=== PATIENT | male | born 1935 | race Caucasian/White ===

== ENCOUNTER 2016-10-10 10:43 | Day surgery (SDC) | payer MEDICARE ==
[~2016-10-10] VITALS: Ht 188 cm; Wt 84.4 kg
[~2016-10-10 10:43] MED LIST: ACET325T51 PO; ATRV10T PO; DILT120T3 PO; FERR-83 PO; FLAX100038 PO; FLEC100T2 PO; GLUC1TAB20 PO; Lactated Ringer's 1,000 ML IV ONE; MULT-1018 PO; RIVA20TA PO
[2016-10-10] MEDS ORDERED: Propofol 10,000 mCg/mL 20 mL Inj ONE (10:44)
[2016-10-10 11:17] VITALS: BP 147/84; PULSE 67; RESP 12; O2SAT 97
--- NOTE | 2016-10-10 12:00 | PCM.HPANE ---
Patient Data Date of Service: Oct 10, 2016 Surgeon Admitting Provider: Attending Provider:Sae Granado MD Primary Care Physician:Edvin Mc MD Other Provider:Nemo Grier Anesthesia Reason for Visit Iron Deficiency Anemia Ht/WT & BMI Height (Feet): 6 Height (Inches): 2 Weight (Kilograms): 84.37 Body Mass Index 23.00 Allergies Coded Allergies: No Known Drug Allergies (Verified Allergy, Unknown, 10/09/16) Past Anesthesia History Anesthesia History: Denies:: Abnormal Airway, Anesthesia Reactions, Difficult Intubation, Fam Anesthesia Reaction, Fam Malignant Hypertherm, Malignant Hyperthermia Diabetes History Hx Diabetes?: No MRSA MRSA: No Medications Blood Thinner: Xarelto (last dose sunday) Last Dose Blood Thinner: Oct 07, 2016 Hypertension Medication: Yes Home Meds Incl Beta Vinay: No Reported Medications Rivaroxaban (Xarelto)20 Mg [id number] Mg PO DAILY 10/09/16 Acetaminophen 325 Mg [id number] Mg PO Q4H PRN For Fever Ref 0 10/09/16 Multivitamin (Multi Vitamin Daily)1 Each Tablet1 Each PO DAILY 30 Days Ref 0 10/09/16 Gluc Lord/Chondro Lord A/Vit C/Mn (Glucosamine Chondroitin Tab)1 Each Tablet1 Each PO BID 10/09/16 Flecainide Acetate 100 Mg [id number] Mg PO BID 10/09/16 Flaxseed Oil ([place]-3 Flaxseed Oil)1,000 Mg Capsule1,000 Mg PO DAILY 10/09/16 Ferrous Sulfate 325 Mg [id number] Mg PO DAILY 30 Days Ref 0 10/09/16 Diltiazem 120 Mg [id number] Mg PO BID 10/09/16 Atorvastatin (Lipitor)10 Mg Tab10 Mg PO DAILY Ref 0 10/09/16 History HEENT History: Denies:: Abnormal Airway Difficult Intubation Dysphagia Hearing Problem Denture Type: Partial- Lower Other HEENT Pertinent History: PARTIAL LEFT AT HOME Hx of Heart Problems?: Yes Cardiovascular History: Positive for:: Atrial Fibrillation (INTERMITTENT) Denies:: AICD Chest Pain Hypertension Pacemaker Valvular Heart Disease Hx of Respiratory Problem?: No Hx Neurologic Problems?: No Neurological History: Denies:: CVA Hx of GI Problems?: Yes Gastrointestinal History: Positive for:: Rectal Bleeding ('DARK') Denies:: Cirrhosis Diverticulitis Gall Bladder Disease Gastroesphageal Reflux Hiatal Hernia Liver Disease Other GI Pertinent History: HX OF H PYLORI W/ ANTIBIOTIC TX Hx of Problems?: No Hx Musculoskeletal Problems?: No Musculoskeletal History: Denies:: Fibromyalgia Joint Replacement Psycho Social History: Denies:: Anxiety Hx Depression Hx Surgeries?: Yes (L HAND, EYE LIDS, BACK GROWTH REMOVAL, STITCHES) Hx Any Other Health Problems?: Yes Hx Diabetes: No Hx Alcohol Use: YesHx Substance Use: No Smoking Status: Former Smoker Have You Smoked inLast 12 mo: No Stop/Bang Treated for Sleep Apnea?: No Do You Have a CPAP Machine?: No S-Snoring: Do You Snore Loudly: No T-Tired: feel tired, fatigued: No O-Obsered: Observed not breath: No P-Blood Pressure: treated: No B- Body Mass Index > 35 kg/m2: No A- Age over 50: Yes N- Neck Large Circumference: No G- Gender Male: Yes [place] Total Score: 2 Risk Assessment Category Category 1A: Patient has history of documented sleep apnea, and HAS NOT received any narcotic, sedative or anesthesia administration during this stay. Category 1B: Patient has history of documented sleep apnea, and HAS received any narcotic , sedative or anesthesia administration during this stay Category 2: Patient has SUSPECTED Obstructive Sleep Apnea, and HAS received any narcotic , sedative or anesthesia administration during this stay. Category 3: Patient has SUSPECTED Obstructive Sleep Apnea and HAS NOT received narcotic, sedative or anesthesia administration during this stay. Category 4: Outpatient in Procedural Areas with known sleep apnea or who screen positive for High Risk via the STOP/BANG questionnaire. Exam Exam Vital Signs Vital Signs Date Time Temp Pulse Resp B/P Pulse Ox O2 Delivery O2 Flow Rate FiO2 10/10/16 11:17 36.0 67 12 147/84 97 Room Air General Appearance: Alert, Oriented X3, Cooperative HEENT/AIRWAY: MP 3, Neck Movement (OK), Mouth Opening (Wide) Lungs: Clear to Auscultation, Normal Air Movement Heart: Regular Rate/Rhythm, Normal S1, Normal S2 Plan Impression Patient chart reviewed, patient interviewed and anesthestic plan with risks, benefits, and alternatives discussed, and informed consent obtained. NPO Status: > 8 hours ASA Physical Status: ASA3 Severe Disease Anesthetic Plan: MAC Bene/Risks/Altern/Consents: Yes HP Complete Prior to Induction: Yes Jonathan Hampton MD Oct 10, 2016 12:00
[2016-10-10] MEDS ORDERED: Lactated Ringer's 1,000 ML IV SCH (12:01)
[2016-10-10] MEDS ORDERED: MetoCLOpramide 5 mg/mL 2 mL Inj IVPUSH PRN (12:05)
[2016-10-10] MEDS ORDERED: Ondansetron 2 mg/mL 2 mL Inj IVPUSH PRN (12:05)
[2016-10-10 12:48] VITALS: BP 118/68; PULSE 52; RESP 14; O2SAT 96
--- NOTE | 2016-10-10 12:58 | PCM.ANEP1 ---
Post Anesthesia Phase 1 PACU Phase 1 Assessment Date of Service: Oct 10, 2016 Vital Signs Vital Signs Date Time Temp Pulse Resp B/P Pulse Ox O2 Delivery O2 Flow Rate FiO2 10/10/16 12:48 52 14 118/68 96 Room Air 10/10/16 11:17 36.0 67 12 147/84 97 Room Air Anesthetic Administered: MAC Level of Alertness: Sleeping, hard to arouse SINGH's with Equal Strength: Yes Pain: No Nausea or Vomiting: No Oxygen Delivery: Room Air Lungs: Normal Air Movement Jonathan Hampton MD Oct 10, 2016 12:58
--- NOTE | 2016-10-10 13:04 | PCM.ANEP2 ---
Post Anesthesia Evaluation ASA/CMS Post Anesthesia Date of Service: Oct 10, 2016 VS in Patient's Normal Range?: Yes Resp Stable; Airway Patent?: Yes CV Function & Hydration Stable: Yes Mental Status Recovered?: Yes Pain control Satisfactory?: Yes N/V Control Satisfactory?: Yes Jonathan Hampton MD Oct 10, 2016 13:03
[2016-10-10 13:11] VITALS: BP 118/69; PULSE 53; RESP 14; O2SAT 99
[2016-10-10 13:19] VITALS: BP 129/72; PULSE 53; RESP 14; O2SAT 100
--- NOTE | 2016-10-10 14:22 | ENDO ---
[address] [address] ENDOSCOPY PROCEDURE PATIENT: DENILSON CUMMINS : 1935 MR#: [id number] ADMIT: 10/10/2016 JOB ID: [id number] DATE OF SERVICE: 10/10/2016 TYPE OF OPERATION: 1. Esophagogastroduodenoscopy with biopsy. 2. Colonoscopy with biopsy, snare polypectomy x2 and gastrointestinal spot tattoo. PREOPERATIVE DIAGNOSIS: Iron deficiency anemia. POSTOPERATIVE DIAGNOSES: 1. Small hiatal hernia. 2. Mild nonerosive gastritis. 3. Small gastric polyp. 4. Sigmoid diverticulosis. 5. Terminal ileal mass, status post biopsy and gastrointestinal spot tattoo. 6. There was a 1 cm cecal polyp and 1 cm ascending colon polyp, both status post normal saline pillow left, status post hot snare polypectomy and Endoclip placed x1 each. ANESTHESIA: Monitored anesthesia care. COMPLICATIONS: None. BLOOD LOSS: Minimal. DESCRIPTION OF PROCEDURE: After risks and benefits explained to the patient, informed consent was obtained. After anesthesia administered, an upper endoscope was then inserted into the mouth and intubated into the esophagus, stomach, second portion of duodenum. Mucosa carefully examined. After the procedure was done, the scope withdrawn and procedure terminated. Colonoscope was then inserted from rectum to the terminal ileum. Mucosa carefully examined. Prep of the patient was fair. After procedure was done, the scope withdrawn and the procedure terminated. FINDINGS: Upon inspection of the esophagus, esophagus was normal without masses, ulcers, or lesions. Z-line located 45 cm from incisors. Upon entering the stomach, there were a couple of benign gastric polyps that were removed by cold biopsy forceps. There was mild nonerosive gastritis. Retroflexion showed small hiatal hernia. Duodenal bulb, first portion were normal. Biopsies taken of antrum, body of the stomach and the gastric polyp and duodenum. Upon inspection of the anus, no masses, hemorrhoids, ulcers, or fissures that were seen. Throughout the entire examination, there was mild sigmoid diverticulosis. There was also a 1 cm ascending colon polyp, a 1 cm cecal polyp that was first injected with a normal pillow of saline lip and hot snare polypectomy was performed. One Endoclip was performed afterwards. There was also a small bowel mass that was protruding through the terminal ileum that was first seen in cecum. Upon entering into the terminal ileum, there was a very thick stalk that was seen in the terminal ileum. The mass encompassed the whole entire lumen of the small bowel. Several biopsies were taken at the mass itself, and GI spot tattoo was deployed near the stalk. Retroflexion was normal. IMPRESSIONS: 1. Small hiatal hernia. 2. Gastric polyps. 3. Mild nonerosive gastritis. 4. Sigmoid diverticulosis, mild. 5. A 1 cm ascending colon polyp and 1 cm cecal polyp, status post normal pillow of saline lip, status post hot snare polypectomy and Endoclip x1 placed at each polypectomy site. 6. A large mass of the terminal ileum, status post biopsy and gastrointestinal spot tattoo. RECOMMENDATION: 1. Await pathology results. 2. CT of chest, abdomen and pelvis with contrast. 3. Will send referral to [facility] to Gastroenterology for evaluation of the small bowel mass.
--- NOTE | 2016-10-11 13:49 | PATH ---
SURGICAL PATHOLOGY Attending Physician:Sae Granado MD CASE STATUS: Signed Out PATIENT NAME: DENILSON CUMMINS PID: [id number] : 1935 DATE COLLECTED:10/10/2016 19:48 SPECIMEN: 1: Duodenum, Biopsy 2: Stomach, Antrum, Biopsy 3: Gastric, Biopsy 4: Ileum, Biopsy 5: Colon, Biopsy CLINICAL HISTORY: 1). DUODENUM BIOPSY 2). ANTRAL BIOPSY 3). GASTRIC BODY BIOPSY 4). TERMINAL ILEUM BIOPSY 5). CECAL POLYP X2 & ASCENDING POLYPS FINAL DIAGNOSIS: 1. 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 Negative for evidence of celiac disease. Negative for dysplasia and malignancy. 2. Antral Biopsy: Mild chronic gastritis involving antral mucosa. Negative for evidence of Helicobacter. Negative for intestinal metaplasia. Negative for dysplasia and malignancy. 3. Gastric Body Biopsy: Severe diffuse chronic active gastritis involving fundic mucosa. Immunohistochemistry for Helicobacter pending to be reported by addendum. Negative for intestinal metaplasia. Negative for dysplasia and malignancy. 4. Terminal Ileum, Biopsy: Acute inflammation of small bowel with prominent neovascularization of lamina propria. Negative for granulomas. Negative for dysplasia and malignancy. 5. 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 ICD10 K29.70 GROSS DESCRIPTION: The specimen is received in five formalin filled containers labeled with the patient's name. 1). The specimen is sublabeled "duodenum" and consists of 2 portions of tissue which aggregate to 0.3 x 0.3 x 0.2 CM. The specimen is entirely submitted in cassette 1A. 2). The specimen is sublabeled "antrum" and consists of a 0.5 x 0.3 x 0.3 CM portion of tissue which is entirely submitted in cassette 2A. 3). The specimen is sublabeled "gastric body" and consists of 3 portions of tissue which aggregate to 0.3 x 0.3 x 0.2 CM. The specimen is entirely submitted in cassette 3A. 4). The specimen is sublabeled "TI mass" and consists of 3 portions of tissue which aggregate to 0.3 x 0.3 x 0.3 CM. The specimen is entirely submitted in cassette 4A. 5). The specimen is sublabeled "cecal polyp X2 and ascending polyps" are 2 fragments of tissue which aggregate to 0.7 x 0.7 x 0.7 CM. Both pieces are bisected and totally submitted in cassette 5A. 10/10/2016 [facility] ICD-9 CODES: CPT CODES: 1: 99007 2: 72572 3: 66329, 16415 4: 76947 5: 20199 PROCEDURE/ADDENDA: Addendum SPI Addendum Diagnosis The gastric biopsy (specimen 3) was stained with polyclonal antibody to Helicobacter pylori using immunohistochemical technique. The positive and negative controls stain appropriately. RESULT: The patient tissue shows no staining. INTERPRETATION: The gastric mucosa is negative for Helicobacter pylori by immunohistochemical stains. * This test was developed and its performance characteristics determined by [facility]. It has not been cleared or approved by the U.S. Food and Drug Administration. The FDA has determined that such clearance or approval is not necessary. This test is used for clinical purposes. It should not be regarded as investigational or for research. Addendum Comment {Not Entered} Electronically Signed Out Peggy Gilliland MD Electronically Signed Out Missael Aquino MD [facility] Pathology [facility] [address], [place] [address] Technical component performed at [facility], [address], [place], [address]
== END 2016-10-10 23:59 | disposition home or self-care (01) ==
LOC: END 10:43 → EDUNIT# 14:00 → END 23:59
PROVIDERS: ATTEND Internal Medicine Gastroenterology
DX: D50.9 Iron deficiency anemia, unspecified (principal); D12.0 Benign neoplasm of cecum; D12.2 Benign neoplasm of ascending colon; K31.7 Polyp of stomach and duodenum; K44.9 Diaphragmatic hernia without obstruction or gangrene; K29.50 Unspecified chronic gastritis without bleeding; N40.0 Benign prostatic hyperplasia without lower urinary tract symptoms; I48.91 Unspecified atrial fibrillation; Z79.01 Long term (current) use of anticoagulants; Z86.010 Personal history of colon polyps; E78.5 Hyperlipidemia, unspecified; Z87.891 Personal history of nicotine dependence
CPT/HCPCS: 43239; 45380; 45381; 45385; 88305; 88342; J7120